=== PATIENT | male | born 1975 | race Caucasian/White ===

== ENCOUNTER 2019-09-04 10:33 | Outpatient (CLI) | payer MEDICARE, MEDICAID, SELFPAY ==
--- NOTE | 2019-09-04 10:43 | XR_ITS ---
WS: [id number] XR cervical spine 3V* [id number] REASON FOR EXAM: NECK PAIN FINDINGS: The odontoid process is normal. Degenerates spurring anteriorly C2, C3, C4, C5, C6. There is posterior spurring noted at C5-C6. The cervicothoracic junction was normal. The joints of Luschka at C4-5, C5-6 show hypertrophic changes. XR/XR cervical spine 3V* [id number] IMPRESSION: Osteoarthritic changes of the neck Mild cervical spondylosis C4-C5.
== END 2019-09-04 10:34 | disposition home or self-care (01) ==
LOC: RAD 10:39
PROVIDERS: PCP Family Medicine; Visit Provider Registered Nurse
DX: M47.892 Other spondylosis, cervical region (principal)
CPT/HCPCS: 72040

== ENCOUNTER 2019-12-26 02:02 | Emergency (ER) | payer MEDICARE, MEDICAID, SELFPAY ==
[2019-12-26 02:19] VITALS: BP 130/83; PULSE 107; RESP 18; TEMP 36.9; O2SAT 97; BMI 56.3
--- NOTE | 2019-12-26 02:26 | CTR_ITS ---
PROCEDURE INFORMATION: Exam: CT Head Without Contrast Exam date and time: 12/26/2019 2:43 AM Age: 44 years old Clinical indication: Dizziness TECHNIQUE: Imaging protocol: Computed tomography of the head without contrast. Radiation optimization: All CT scans at this facility use at least one of these dose optimization techniques: automated exposure control; mA and/or kV adjustment per patient size (includes targeted exams where dose is matched to clinical indication); or iterative reconstruction. COMPARISON: CT head wo con* [id number] 09/25/2018 6:36 AM RADIATION DOSE METRICS: Total DLP (mGy-cm): 977.01 FINDINGS: Brain: Normal. No hemorrhage. Unremarkable white matter. No mass effect. Cerebral ventricles: No ventriculomegaly. Bones/joints: Unremarkable. No acute fracture. Paranasal sinuses: Visualized sinuses are unremarkable. No fluid levels. Mastoid air cells: Visualized mastoid air cells are well aerated. Soft tissues: Unremarkable. CT/CT head wo con* [id number] IMPRESSION: No acute intracranial abnormality. Radiation Dose CTDIVOL = (mGy): DLP = 977.01 (mGy-cm)
--- NOTE | 2019-12-26 02:26 | XR_ITS ---
WS: [id number] XR chest 1V portable [id number] REASON FOR EXAM: Dyspnea FINDINGS: Mild cardiomegaly. Elevation and flattening of the right hemidiaphragm. There is some flattening of the left hemidiaphra gm as well. No active pulmonary parenchymal or pleural disease is identified. No bony thorax abnormality is identified. The chest is unchanged compared to 09/25/2018. XR/XR chest 1V portable [id number] IMPRESSION: No acute chest abnormality.
--- NOTE | 2019-12-26 02:27 | ECG_ITS ---
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 Measurements Intervals [place] Rate: 106 P: 40 MA: 168 QRS: 52 QRSD: 91 T: 9 QT: 323 QTc: 431 Interpretive Statements SINUS TACHYCARDIA ABNORMAL RHYTHM ECG INTERPRETATION BASED ON A DEFAULT AGE OF 40 YEARS Compared to ECG 09/25/2018 09:40:20 Sinus rhythm no longer present Sinus arrhythmia no longer present Electronically Signed On 12-26-2019 21:34:18 CDT by Govind Fontanez M.D. [id number]
[2019-12-26] MEDS: ondansetron 2 mg/ML SDV 2 mL 4 MG IVP (02:44)
[2019-12-26] MEDS: sodium chloride 0.9% 1,000 ML 999 ML IV ×2 (02:44→04:08)
[2019-12-26 02:45] VITALS: BP 124/79; PULSE 99; RESP 18; O2SAT 97
--- NOTE | 2019-12-26 02:46 | W.ED.ARRPALP ---
HPI - Arrhythmia/Palpitations General: Chief Complaint: Arrhythmia/Palpitations Stated Complaint: multiple complaints Time Seen by Provider: 12/26/19 02:22 Source: patient and family Limitations: no limitations History of Present Illness: HPI narrative: Mr. Serrano is a very nice 44-year-old male comes in complaining of feeling lightheaded and dizzy all day. He is had numerous episodes of vomiting and diarrhea. He has some left-sided cramping abdominal pain. Denies any blood in his stools or blood in his vomit. Tonight when he stood up he felt lightheaded and dizzy and felt like his heart was palpating. He did not pass out or nearly pass out. Patient was concerned he may be getting dehydrated because of this he came here to the hospital for evaluation. He denies any other aggravating alleviating factors. Denies any chest pain. He states he does have chronic lung issues and was short of breath with this but after using his inhaler he has felt much better. Associated symptoms: Reports nausea; Deny diaphoresis, pre-syncope, syncope or vomiting Review of Systems Const: Denies: fever(s), chills, body aches, fatigue, malaise or diaphoresis Eyes: Denies: change in vision, blurry vision, photophobia, eye discomfort, eye discharge, eye redness or yellow eyes ENMT: Denies: throat pain, odynophagia, hoarseness, swelling of lips/tongue, ear or mastoid pain, ear discharge, change in hearing or nasal discharge Card: Reports: palpitations; Denies: chest pain, irregular heart rhythm, edema, lightheadedness, syncope, pre-syncope, dyspnea on exertion or orthopnea Resp: Reports: dyspnea; Denies: productive cough, non-productive cough, wheezing, hemoptysis or chest congestion GI: Reports: abdominal pain, nausea and diarrhea; Denies: vomiting, hematemesis, coffee ground emesis, heartburn, constipation, GI cramping, hematochezia or melena : Denies: flank pain, dysuria, urinary frequency, urinary urgency or hematuria Musc: Denies: neck pain, back pain, extremity pain, extremity swelling, joint pain, joint swelling, joint redness, joint warmth or joint stiffness Skin/Breast: Denies: rash, pruritus, erythema, skin pain or skin tenderness Neuro: Denies: headache(s), numbness in extremities, weakness in extremities, sensory changes, lack of coordination, difficulty walking, vertigo, confusion, Slurred speech present or seizure-like activity Sundar/Lymph: Denies: easy bruising, easy bleeding, petechiae, purpura or enlarged lymph nodes All/Imm: Denies: urticaria, throat swelling, tongue swelling, facial swelling or acute wheezing Physical Exam Const: COMMON NORMALS: no acute distress, patient oriented x3, no limitations and alert GENERAL APPEARANCE: cooperative HENMT: COMMON NORMALS: normocephalic, atraumatic, external ears normal, EAC's normal and Normal external nose present HEAD & SCALP: normal to inspection, normocephalic and atraumatic FACE & SINUS: normal facial exam and face symmetric NOSE: Normal external nose present and Normal nares present EXTERNAL EAR: Yes external ears normal EXTERNAL AUDITORY CANAL: EAC's normal MOUTH: Normal oral and palatal mucosa present, lip normal and tongue normal Eye: COMMON NORMALS: Equal, round and reactive pupils present and conjunctivae normal GENERAL EYE: appearance normal, both eyes and all related structures ALIGNMENT: Yes alignment normal PERIORBITAL: periorbital findings normal EYELID: eyelids normal CONJUNCTIVA: Yes conjunctivae normal SCLERA: sclerae normal PUPIL: Yes Equal, round and reactive pupils present Neck/C-Spine: COMMON NORMALS: full ROM, no lymphadenopathy, supple, no meningeal signs and no JVD GENERAL: Yes normal visual inspection and Yes trachea midline Chest: COMMONS NORMALS: normal inspection of the chest and normal palpation of entire chest wall Resp: COMMON NORMALS: normal respiratory effort, No retractions, No use of accessory muscles and clear to auscultation bilaterally EFFORT & INSPECTION: Yes able to speak in complete sentences and Yes symmetric chest movement AUSCULTATION: clear to auscultation bilaterally, no crackles, no rales, no rhonchi and no wheezes Cardio: COMMON NORMALS: no JVD, regular rate, regular rhythm, S1 normal heart sound present and S2 normal heart sound present RATE: regular rate RHYTHM: regular rhythm HEART SOUNDS: S1 normal heart sound present, S2 normal heart sound present, no click, no gallops, no murmurs and no rubs GI: COMMON NORMALS: Soft to palpation and No hepatosplenomegaly present PALPATION: Yes Soft to palpation, No Tenderness to palpation present (GI), No Guarding due to palpation present (GI), No Rigid due to palpation, Yes No hepatosplenomegaly present, No Hernia present, No Palpable mass present and No Pulsatile mass present : COMMON NORMALS: Yes no CVA tenderness BLADDER/KIDNEY EXAM: Yes no CVA tenderness Back/Pelvis: COMMON NORMALS: no CVA tenderness, thoracic and lumbar spine normal to inspection, no thoracic nor lumbar tenderness and thoraco-lumbar ROM normal Extremity: COMMON NORMALS: normal to inspection, full ROM, capillary refill normal, no joint enlargement, no clubbing, cyanosis or edema and no calf tenderness Neuro: COMMON NORMALS: patient oriented x3, CN's II-XII intact bilaterally, moves all extremities, no focal motor deficits and no sensory deficits noted SENSORIUM/ORIENTATION: Yes alert MENINGEAL SIGNS: Yes no meningeal signs SPEECH: speech normal Psych: COMMON NORMALS: mental status grossly normal, Normal thought process present, cooperative, normal affect, speech normal and activity/motor behavior normal SPEECH: Yes normal speech THOUGHT PROCESS: Normal thought process present Skin: COMMON NORMALS: no rashes or lesions noted, turgor normal, no jaundice, no petechiae and no mottling GENERAL SKIN EXAM: no rashes or lesions noted and turgor normal Course Vital Signs: Vital signs: Vital Signs Temperature 98.4 F 12/26/19 02:19 Pulse Rate 97 12/26/19 06:07 Respiratory Rate 16 12/26/19 06:07 Blood Pressure 125/84 12/26/19 06:07 Pulse Oximetry 97 12/26/19 06:07 MDM - Arrhythmia/Palpitations MDM Narrative: Medical decision making narrative: 0546 -patient is feeling much better and is ready to go home. His labs are unremarkable as well as his CAT scans. He agrees to return should his symptoms change or worsen but this time he is feeling better would like to be discharged. On repeat exam I see no evidence of acute peritonitis. Patient is having no chest pain. His labs and EKGs are unremarkable. Patient's urine came back corrected and there is evidence of UTI. I will place the patient on antibiotics at discharge. Lab Data: Attestation: I reviewed the patient's lab results. Labs: Lab Results 12/26/19 12/26/19 12/26/19 Range/Units 02:38 02:38 02:38 WBC 9.7 (4.0-10.0) 10^3/ uL RBC 4.48 (4.1-5.3) 10^6/u L Hgb 12.8 (11.7-16.6) g/dL Hct 39.8 L (42.0-52.0) % MCV 88.8 (80-94) fL MCH 28.6 (28.0-34.0) pg MCHC 32.2 (30.0-36.0) g/dL RDW 12.8 (12.1-15.1) % Plt Count 259 (130-400) 10^3/c mm MPV 10.4 (7.4-10.4) fL Neut % (Auto) 69.7 % Lymph % (Auto) 19.4 % Bates % (Auto) 7.8 % Eos % (Auto) 2.1 % Baso % (Auto) 0.7 % Neut # (Auto) 6.74 (1.8-7.7) 10^3/u L Lymph # (Auto) 1.9 (0.8-4.8) 10^3/u L Bates # (Auto) 0.8 (0.2-0.9) 10^3/u L Eos # (Auto) 0.2 (0.0-0.8) 10^3/u L Baso # (Auto) 0.1 (0.0-0.1) 10^3/u L Nucleated RBC % (a uto) 0 % Nucleated RBCs # 0.0 /100WBC D-Dimer (0-0.59) ug/mIFE U Sodium 136 (136-145) mmol/L Potassium 3.6 (3.5-5.1) mmol/L Chloride 100 (98-107) mmol/L Carbon Dioxide 22 (22-29) mmol/L Anion Gap 17.6 (5-19) BUN 16 (6-20) mg/dL Creatinine 1.2 (0.7-1.2) mg/dL GFR Calculation 65.2 L (90-130) mL/min Glucose 251 H (65-115) mg/dL Calculated Osmolal ity 292 (285-295) mOsm/k g Lactic Acid 1.5 (0.5-2.2) mmol/L Calcium 9.5 (8.5-10.5) mg/dL Magnesium 2.0 (1.7-2.3) mg/dL Total Bilirubin 0.3 (0.15-1.2) mg/dL AST 23 (0-40) U/L ALT 29 (0-41) U/L Alkaline Phosphata se 89 (40-130) IU/L Troponin T Baselin e (0-15) ng/L Troponin T 120 Min [place] (0-15) ng/L Delta Troponin T (0-10) ABS# NT-Pro-B Natriuret Pep (0-125) pg/mL Total Protein 6.6 (6.6-8.7) g/dL Albumin 4.0 (3.5-5.2) g/dL Globulin 2.6 (1.3-4.6) g/dL Lipase 48 (13-60) U/L Urine Color (Yellow) Urine Appearance (CLEAR) Urine pH (5-7) Ur Specific Gravit y (1.005-1.030) Urine Protein (Negative) Urine Glucose (UA) (Normal) Urine Ketones (Negative) Urine Blood (Negative) Urine Nitrate (Negative) Urine Bilirubin (Negative) Urine Urobilinogen (Negative) mg/dL Ur Leukocyte Nidia ase (Negative) Urine RBC (0-2) /hpf Urine WBC (0-5) /hpf Ur Squamous Epith Cells (0-5) /hpf Amorphous Sediment Urine Bacteria (NONE) /hpf SARS-CoV-2 Ag (Rap id) (Negative) 12/26/19 12/26/19 12/26/19 Range/Units 02:38 02:38 02:38 WBC (4.0-10.0) 10^3/ uL RBC (4.1-5.3) 10^6/u L Hgb (11.7-16.6) g/dL Hct (42.0-52.0) % MCV (80-94) fL MCH (28.0-34.0) pg MCHC (30.0-36.0) g/dL RDW (12.1-15.1) % Plt Count (130-400) 10^3/c mm MPV (7.4-10.4) fL Neut % (Auto) % Lymph % (Auto) % Bates % (Auto) % Eos % (Auto) % Baso % (Auto) % Neut # (Auto) (1.8-7.7) 10^3/u L Lymph # (Auto) (0.8-4.8) 10^3/u L Bates # (Auto) (0.2-0.9) 10^3/u L Eos # (Auto) (0.0-0.8) 10^3/u L Baso # (Auto) (0.0-0.1) 10^3/u L Nucleated RBC % (a uto) % Nucleated RBCs # /100WBC D-Dimer (0-0.59) ug/mIFE U Sodium (136-145) mmol/L Potassium (3.5-5.1) mmol/L Chloride (98-107) mmol/L Carbon Dioxide (22-29) mmol/L Anion Gap (5-19) BUN (6-20) mg/dL Creatinine (0.7-1.2) mg/dL GFR Calculation (90-130) mL/min Glucose (65-115) mg/dL Calculated Osmolal ity (285-295) mOsm/k g Lactic Acid (0.5-2.2) mmol/L Calcium (8.5-10.5) mg/dL Magnesium (1.7-2.3) mg/dL Total Bilirubin (0.15-1.2) mg/dL AST (0-40) U/L ALT (0-41) U/L Alkaline Phosphata se (40-130) IU/L Troponin T Baselin e 11 (0-15) ng/L Troponin T 120 Min [place] (0-15) ng/L Delta Troponin T (0-10) ABS# NT-Pro-B Natriuret Pep 5 (0-125) pg/mL Total Protein (6.6-8.7) g/dL Albumin (3.5-5.2) g/dL Globulin (1.3-4.6) g/dL Lipase (13-60) U/L Urine Color (Yellow) Urine Appearance (CLEAR) Urine pH (5-7) Ur Specific Gravit y (1.005-1.030) Urine Protein (Negative) Urine Glucose (UA) (Normal) Urine Ketones (Negative) Urine Blood (Negative) Urine Nitrate (Negative) Urine Bilirubin (Negative) Urine Urobilinogen (Negative) mg/dL Ur Leukocyte Nidia ase (Negative) Urine RBC (0-2) /hpf Urine WBC (0-5) /hpf Ur Squamous Epith Cells (0-5) /hpf Amorphous Sediment Urine Bacteria (NONE) /hpf SARS-CoV-2 Ag (Rap id) Negative (Negative) 12/26/19 12/26/19 12/26/19 Range/Units 02:38 04:25 04:25 WBC (4.0-10.0) 10^3/ uL RBC (4.1-5.3) 10^6/u L Hgb (11.7-16.6) g/dL Hct (42.0-52.0) % MCV (80-94) fL MCH (28.0-34.0) pg MCHC (30.0-36.0) g/dL RDW (12.1-15.1) % Plt Count (130-400) 10^3/c mm MPV (7.4-10.4) fL Neut % (Auto) % Lymph % (Auto) % Bates % (Auto) % Eos % (Auto) % Baso % (Auto) % Neut # (Auto) (1.8-7.7) 10^3/u L Lymph # (Auto) (0.8-4.8) 10^3/u L Bates # (Auto) (0.2-0.9) 10^3/u L Eos # (Auto) (0.0-0.8) 10^3/u L Baso # (Auto) (0.0-0.1) 10^3/u L Nucleated RBC % (a uto) % Nucleated RBCs # /100WBC D-Dimer 0.44 (0-0.59) ug/mIFE U Sodium (136-145) mmol/L Potassium (3.5-5.1) mmol/L Chloride (98-107) mmol/L Carbon Dioxide (22-29) mmol/L Anion Gap (5-19) BUN (6-20) mg/dL Creatinine (0.7-1.2) mg/dL GFR Calculation (90-130) mL/min Glucose (65-115) mg/dL Calculated Osmolal ity (285-295) mOsm/k g Lactic Acid (0.5-2.2) mmol/L Calcium (8.5-10.5) mg/dL Magnesium (1.7-2.3) mg/dL Total Bilirubin (0.15-1.2) mg/dL AST (0-40) U/L ALT (0-41) U/L Alkaline Phosphata se (40-130) IU/L Troponin T Baselin e (0-15) ng/L Troponin T 120 [address] [place] 10.47 (0-15) ng/L Delta Troponin T -0.53 L (0-10) ABS# NT-Pro-B Natriuret Pep (0-125) pg/mL Total Protein (6.6-8.7) g/dL Albumin (3.5-5.2) g/dL Globulin (1.3-4.6) g/dL Lipase (13-60) U/L Urine Color Yellow (Yellow) Urine Appearance Clear (CLEAR) Urine pH 5 (5-7) Ur Specific Gravit y 1.020 (1.005-1.030) Urine Protein Neg (Negative) Urine Glucose (UA) 4+ H (Normal) Urine Ketones Negative (Negative) Urine Blood Neg (Negative) Urine Nitrate Negative (Negative) Urine Bilirubin Neg (Negative) Urine Urobilinogen Norm (Negative) mg/dL Ur Leukocyte Nidia ase 1+ H (Negative) Urine RBC 0-4 H (0-2) /hpf Urine WBC 15-25 H (0-5) /hpf Ur Squamous Epith Cells 0-4 H (0-5) /hpf Amorphous Sediment Not Reportable Urine Bacteria 1+ H (NONE) /hpf SARS-CoV-2 Ag (Rap id) (Negative) Imaging Data^: CXR: Attestation: I personally reviewed and interpreted this imaging study as follows: My impression: Mild rotation present. Cardiomegaly. Possible mild interstitial prominence. CT Abd/Pel: Radiologist's impression: [address] [address] [address] Scan Report Signed Patient: Josse Serrano Unit #: [id number] : 1975 Age/Sex: 44 / M ADM Date: 12/26/19 Loc: ER Room/Bed: Attending Dr: Ordering Provider/Ordering MD: Alem Merrill DO Date of Service: 12/26/19 Procedure(s): CT abdomen pelvis w con* [id number] Accession Number(s): [id number] Report Number: [id number] PROCEDURE INFORMATION: Exam: CT Abdomen And Pelvis With Contrast Exam date and time: 12/26/2019 4:21 AM Age: 44 years old Clinical indication: Abdominal pain; Generalized TECHNIQUE: Imaging protocol: Computed tomography of the abdomen and pelvis with intravenous contrast. Radiation optimization: All CT scans at this facility use at least one of these dose optimization techniques: automated exposure control; mA and/or kV adjustment per patient size (includes targeted exams where dose is matched to clinical indication); or iterative reconstruction. Contrast material: OMNI 300; Contrast volume: 95 ml; Contrast route: INTRAVENOUS (IV); COMPARISON: No relevant prior studies available. RADIATION DOSE METRICS: Total DLP (mGy-cm): 2051.43 FINDINGS: Lungs: Lung bases are clear. Liver: The liver is normal. Gallbladder and bile ducts: Cholelithiasis is present. There is no sign of cholecystitis. There is no intrahepatic or extrahepatic bile duct dilation. Pancreas: The pancreas is unremarkable. Spleen: The spleen is unremarkable. Adrenals: The adrenal glands are unremarkable. Kidneys and ureters: The kidneys are unremarkable. No hydronephrosis or stones. No ureteral dilation. Stomach and bowel: The stomach is unremarkable. The small bowel is nondilated. The colon is unremarkable. Appendix: The appendix is normal. Intraperitoneal space: There is no free air or significant intraperitoneal free fluid. Vasculature: The portal, splenic and superior mesenteric veins are patent. The aorta is unremarkable. There is no aneurysm. Lymph nodes: There is no lymphadenopathy in the retroperitoneum, mesentery, pelvis or inguinal regions. There are calcified lymph nodes in the right hilum. Urinary bladder: The urinary bladder is unremarkable. Reproductive: The prostate and seminal vesicles are unremarkable. Bones/joints: There is mild degenerative disease in the lumbar spine. There is moderate degenerative disease of both hips. The pelvis and hips are intact. Soft tissues: The visible portion of the abdominal wall is intact. The left lateral abdominal wall is partially obscured due to bore contact. CT/CT abdomen pelvis w con* [id number] IMPRESSION: 1. No acute findings. 2. Incidental findings above. Radiation Dose CTDIVOL = (mGy): DLP = 2051.43 (mGy-cm) Dictated By: Phi Faulkner MD Signed By: Phi Faulkner MD Signed Date/Time: 12/26/19515 DD/ 4 CT Head: Radiologist's impression: [facility] [address] [place] [address] CT Scan Report Signed Patient: Josse Serrano Unit #: [id number] : 1975 Age/Sex: 44 / M ADM Date: 12/26/19 Loc: ER Room/Bed: Attending Dr: Ordering Provider/Ordering MD: Alem Merrill DO Date of Service: 12/26/19 Procedure(s): CT head wo con* [id number] Accession Number(s): [id number] Report Number: [id number] PROCEDURE INFORMATION: Exam: CT Head Without Contrast Exam date and time: 12/26/2019 2:43 AM Age: 44 years old Clinical indication: Dizziness TECHNIQUE: Imaging protocol: Computed tomography of the head without contrast. Radiation optimization: All CT scans at this facility use at least one of these dose optimization techniques: automated exposure control; mA and/or kV adjustment per patient size (includes targeted exams where dose is matched to clinical indication); or iterative reconstruction. COMPARISON: CT head wo con* [id number] 09/25/2018 6:36 AM RADIATION DOSE METRICS: Total DLP (mGy-cm): 977.01 FINDINGS: Brain: Normal. No hemorrhage. Unremarkable white matter. No mass effect. Cerebral ventricles: No ventriculomegaly. Bones/joints: Unremarkable. No acute fracture. Paranasal sinuses: Visualized sinuses are unremarkable. No fluid levels. Mastoid air cells: Visualized mastoid air cells are well aerated. Soft tissues: Unremarkable. CT/CT head wo con* [id number] IMPRESSION: No acute intracranial abnormality. Radiation Dose CTDIVOL = (mGy): DLP = 977.01 (mGy-cm) Dictated By: Maureen Serna Signed By: Maureen Serna Signed Date/Time: 12/26/19528 DD/ 6 EKG Data^: EKG 1: Attestation: I personally reviewed and interpreted this EKG as follows: EKG interpretation date: 12/26/19 EKG interpretation time: 02:21 Interpretation: Sinus tachycardia at 106 beats a minute, normal axis, normal intervals, no blocks, no acute ST-T wave changes. Other EKG comments: Chest X-Ray 12/26/19 02:26 IMPRESSION: No acute chest abnormality. Head CT 12/26/19 02:26 IMPRESSION: No acute intracranial abnormality. Radiation Dose CTDIVOL = (mGy): DLP = 977.01 (mGy-cm) Abdomen/Pelvis CT 12/26/19 04:19 IMPRESSION: 1. No acute findings. 2. Incidental findings above. Radiation Dose CTDIVOL = (mGy): DLP = 2051.43 (mGy-cm) EKG 2: Attestation: I personally reviewed and interpreted this EKG as follows: EKG interpretation date: 12/26/19 EKG interpretation time: 04:56 Interpretation: Normal sinus rhythm at 92 beats a minute, no blocks, normal intervals, no acute ST-T wave changes. Other EKG comments: Chest X-Ray 12/26/19 02:26 IMPRESSION: No acute chest abnormality. Head CT 12/26/19 02:26 IMPRESSION: No acute intracranial abnormality. Radiation Dose CTDIVOL = (mGy): DLP = 977.01 (mGy-cm) Abdomen/Pelvis CT 12/26/19 04:19 IMPRESSION: 1. No acute findings. 2. Incidental findings above. Radiation Dose CTDIVOL = (mGy): DLP = 2051.43 (mGy-cm) Discharge Plan Discharge Patient Disposition: Home Clinical Impression: Abdominal pain, vomiting, and diarrhea, Palpitations, Acute dehydration, Acute UTI Condition: Stable Prescriptions: New Zofran 4 mg tablet 4 mg PO Q6H PRN (Reason: nausea and vomiting) Qty: 20 RF: 0 cefdinir 300 mg capsule 300 mg PO Q12H 10 Days Qty: 20 RF: 0 Discharge Orders: Discharge Order (Routine); Ordered 12/26/19 Ordered By: Alem Merrill Referrals: Rachel Cortez DO [Primary Care Provider] - 1-3 days Discharge Diet: Advance as tolerated and Clear Liquid Discharge Activity: Increase activity as tolerated Patient Instructions: Abdominal Pain (ED) Activity Restrictions/Additional Instructions: Please return to the ER immediately for any of the signs or symptoms listed on your discharge instruction sheets, worsening/changing of your symptoms, you are not getting better as quickly as expected, or for ANY other cause or concerns. Return to the ER for new onset of chest pain, return of shortness of breath, new onset of fever, worsening vomiting and diarrhea, or for any other cause for concern. Be certain to follow-up with your doctor as soon as possible for recheck. 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
[2019-12-26 02:50] LABS: Basophils # 0.1 10^3/uL (0.0-0.1); Basophils % 0.7 %; Eosinophils # 0.2 10^3/uL (0.0-0.8); Eosinophils % 2.1 %; Hematocrit 39.8 % (42.0-52.0); Hemoglobin 12.8 g/dL (11.7-16.6); Lymphocytes # 1.9 10^3/uL (0.8-4.8); Lymphocytes % 19.4 %; Mean Corpuscular HGB Conc 32.2 g/dL (30.0-36.0); Mean Corpuscular Hemoglobin 28.6 pg (28.0-34.0); Mean Corpuscular Volume 88.8 fL (80-94); Mean Platelet Volume 10.4 fL (7.4-10.4); Monocytes # 0.8 10^3/uL (0.2-0.9); Monocytes % 7.8 %; Neutrophils # 6.74 10^3/uL (1.8-7.7); Neutrophils % 69.7 %; Nucleated Red Blood Cells % 0 %; Platelet Count 259 10^3/cmm (130-400); Red Blood Count 4.48 10^6/uL (4.1-5.3); Red Cell Distribution Width 12.8 % (12.1-15.1); White Blood Count 9.7 10^3/uL (4.0-10.0)
[2019-12-26 03:10] LABS: Lactic Sepsis W/Reflex 1.5 mmol/L (0.5-2.2)
[2019-12-26 03:11] LABS: Alanine Aminotransferase 29 U/L (0-41); Alkaline Phosphatase 89 IU/L (40-130); Anion Gap 17.6 (5-19); Aspartate Amino Transferase 23 U/L (0-40); Blood Urea Nitrogen 16 mg/dL (6-20); Calcium 9.5 mg/dL (8.5-10.5); Carbon Dioxide 22 mmol/L (22-29); Chloride 100 mmol/L (98-107); Creatinine Clr Calc Pharmacy 114.2113; Globulin 2.6 g/dL (1.3-4.6); Glomerular Filtration Rate 65.2 mL/min (90-130); Glucose 251 mg/dL (65-115); Lipase 48 U/L (13-60); Osmolality Calculated 292 mOsm/kg (285-295); Potassium 3.6 mmol/L (3.5-5.1); Sodium 136 mmol/L (136-145); Total Bilirubin 0.3 mg/dL (0.15-1.2); Total Protein 6.6 g/dL (6.6-8.7)
[2019-12-26 03:15] LABS: Troponin(5th) Baseline 11 ng/L (0-15)
[2019-12-26 03:48] LABS: SARS Covid-2 Antigen Negative (Negative)
[2019-12-26 04:18] LABS: D Dimer 0.44 ug/mIFEU (0-0.59)
--- NOTE | 2019-12-26 04:19 | CTR_ITS ---
PROCEDURE INFORMATION: Exam: CT Abdomen And Pelvis With Contrast Exam date and time: 12/26/2019 4:21 AM Age: 44 years old Clinical indication: Abdominal pain; Generalized TECHNIQUE: Imaging protocol: Computed tomography of the abdomen and pelvis with intravenous contrast. Radiation optimization: All CT scans at this facility use at least one of these dose optimization techniques: automated exposure control; mA and/or kV adjustment per patient size (includes targeted exams where dose is matched to clinical indication); or iterative reconstruction. Contrast material: OMNI 300; Contrast volume: 95 ml; Contrast route: INTRAVENOUS (IV); COMPARISON: No relevant prior studies available. RADIATION DOSE METRICS: Total DLP (mGy-cm): 2051.43 FINDINGS: Lungs: Lung bases are clear. Liver: The liver is normal. Gallbladder and bile ducts: Cholelithiasis is present. There is no sign of cholecystitis. There is no intrahepatic or extrahepatic bile duct dilation. Pancreas: The pancreas is unremarkable. Spleen: The spleen is unremarkable. Adrenals: The adrenal glands are unremarkable. Kidneys and ureters: The kidneys are unremarkable. No hydronephrosis or stones. No ureteral dilation. Stomach and bowel: The stomach is unremarkable. The small bowel is nondilated. The colon is unremarkable. Appendix: The appendix is normal. Intraperitoneal space: There is no free air or significant intraperitoneal free fluid. Vasculature: The portal, splenic and superior mesenteric veins are patent. The aorta is unremarkable. There is no aneurysm. Lymph nodes: There is no lymphadenopathy in the retroperitoneum, mesentery, pelvis or inguinal regions. There are calcified lymph nodes in the right hilum. Urinary bladder: The urinary bladder is unremarkable. Reproductive: The prostate and seminal vesicles are unremarkable. Bones/joints: There is mild degenerative disease in the lumbar spine. There is moderate degenerative disease of both hips. The pelvis and hips are intact. Soft tissues: The visible portion of the abdominal wall is intact. The left lateral abdominal wall is partially obscured due to bore contact. CT/CT abdomen pelvis w con* [id number] IMPRESSION: 1. No acute findings. 2. Incidental findings above. Radiation Dose CTDIVOL = (mGy): DLP = 2051.43 (mGy-cm)
[2019-12-26 04:20] LABS: NT Pro B Type Natriuretic Pept 5 pg/mL (0-125)
[2019-12-26] MEDS: iohexol 300 mg/mL 100 mL Btl IV (04:46)
[2019-12-26 05:08] LABS: Troponin 5 2HR 10.47 ng/L (0-15); Troponin 5 2HR Delta -0.53 ABS# (0-10)
[2019-12-26 05:45] LABS: Urine Appearance Clear (CLEAR); Urine Color Yellow (Yellow)
[2019-12-26 05:46] LABS: Bacteria Urine 1+ /hpf; Bilirubin Urine Neg (Negative); Blood Urine Neg (Negative); Glucose Urine UA 4+ (Normal); Ketones Urine Negative (Negative); Leukocyte Esterase Urine 1+ (Negative); Nitrate Urine Negative (Negative); Protein Urine Neg (Negative); RBC Urine 0-4 /hpf (0-2); Squamous Epithelial Cell Urine 0-4 /hpf (0-5); Urobilinogen Urine Norm (Negative); WBC Urine 15-25 /hpf (0-5); pH Urine 5 (5-7)
[2019-12-26 06:07] VITALS: BP 125/84; PULSE 97; RESP 16; O2SAT 97
[2019-12-26] MEDS: cefTRIAXone 1,000 MG in sodium chloride 0.9% (plus) 50 ML 100 MG IV (06:07)
== END 2019-12-26 06:09 | disposition home or self-care (01) ==
PROVIDERS: Emergency Provider Emergency Medicine; PCP Family Medicine
DX: N39.0 Urinary tract infection, site not specified (principal); E86.0 Dehydration; R00.2 Palpitations; R19.7 Diarrhea, unspecified; R11.10 Vomiting, unspecified
CPT/HCPCS: 12345; 70450; 71045; 74177; 80053; 81001; 83605; 83690; 83735; 83880; 84484; 85025; 85378; 87426; 93005; 96361; 96374; 96375; 99283; 99284; J0696; J2405; J7030; Q9967

== ENCOUNTER → 2023-08-18 09:39 | Outpatient (BNVA) | payer MEDICARE, MEDICAID, SELFPAY | PROVIDERS: PCP Family Medicine; Visit Provider Student in an Organized Health Care Education/Training Program | DX: S46.002A Unspecified injury of muscle(s) and tendon(s) of the rotator cuff of left shoulder, initial encounter; W18.2XXA Fall in (into) shower or empty bathtub, initial encounter | CPT/HCPCS: 73030; 99203 ==

== ENCOUNTER 2024-06-18 12:33 | Emergency (ER) | payer MEDICARE, MEDICAID, SELFPAY ==
--- NOTE | 2024-06-18 12:35 | XR_ITS ---
WS: [id number] XR chest 1V portable [id number] REASON FOR EXAM: sob FINDINGS: The chest appears relatively unchanged compared to 12/26/2019. Mild tortuosity and ectasia of the thoracic aorta. Heart size at the upper limits of normal. Calcified granulomas disease bilaterally. Elevation of the right hemidiaphragm. Hemidiaphragms are somewhat flattened. No significant abnormality of the bony thorax is identified. XR/XR chest 1V portable [id number] IMPRESSION: Stable chest with no acute abnormality.
[2024-06-18 12:36] VITALS: BP 153/89; PULSE 91; RESP 18; TEMP 36.8; O2SAT 97; BMI 56.3
--- NOTE | 2024-06-18 12:41 | ECG_ITS ---
[facility]: 2024-[facility]18 Pat Name: Josse Serrano Department: Room: Gender: Male Home Health Provider: : 1975 Requested By: Christianne Hinds Order Number: [id number] Reading MD: Measurements Intervals [place] Rate: 87 P: 27 RI: 156 QRS: 24 QRSD: 88 T: 29 QT: 326 QTc: 393 Interpretive Statements SINUS RHYTHM LOW QRS VOLTAGE IN PRECORDIAL LEADS [QRS DEFLECTION < 1.0 mV IN CHEST LEADS] INTERPRETATION BASED ON A DEFAULT AGE OF 40 YEARS No previous ECG available for comparison [email or web address]
[2024-06-18 12:56] LABS: Basophils # 0.1 10^3/uL (0.0-0.1); Basophils % 0.8 %; Eosinophils # 0.2 10^3/uL (0.0-0.8); Eosinophils % 1.7 %; Hematocrit 43.8 % (37-53); Lymphocytes # 1.6 10^3/uL (0.8-4.8); Mean Corpuscular HGB Conc 32.2 g/dL (30-55); Mean Corpuscular Hemoglobin 28.5 pg (27-33); Mean Corpuscular Volume 88.5 fl (82-101); Mean Platelet Volume 10.1 fL (7.4-10.4); Monocytes # 0.7 10^3/uL (0.2-0.9); Monocytes % 7.1 %; Neutrophils # 7.48 10^3/uL (1.8-7.7); Neutrophils % 73.4 %; Nucleated Red Blood Cells % 0 %; Platelet Count 287 10^3/cmm (157-399); Red Blood Count 4.95 10^6/uL (3.85-5.65); Red Cell Distribution Width 13.2 % (12.1-15.1); White Blood Count 10.18 10^3/uL (3.29-11.43)
--- NOTE | 2024-06-18 13:10 | W.ED.SOB ---
HPI - SOB/Dyspnea General: Chief Complaint: Shortness of Breath/Dyspnea Stated Complaint: SOB Time Seen by Provider: 06/18/24 13:04 Source: patient Mode of arrival: ambulatory Limitations: no limitations History of Present Illness: HPI Narrative: 49-year-old male states that he has been having shortness of breath little weak states he was seen last week at another ER was diagnosed pneumonia is finished his doxycycline he states is not any shortness of breath any days states it is only at night states he wears a CPAP machine but seems that he gets short of breath with laying down and when he is sleeping he denies any chest pain denies any fever cough. Associated symptoms: Deny abdominal pain, chest pain, fever(s), nausea or vomiting Related Data Home Medications ?Medication ?Instructions ?Recorded ?Confirmed albuterol sulfate 90 mcg/actuation 2 inh inhalation Q6H 06/18/24 06/18/24 aerosol inhaler bumetanide 1 mg tablet 1 mg PO DAILY 06/18/24 06/18/24 dulaglutide 0.75 mg/0.5 mL 0.75 mg SUBCUT Q7D 06/18/24 06/18/24 subcutaneous pen injector (Trulicity) empagliflozin 25 mg-linagliptin 5 1 tab PO DAILY 06/18/24 06/18/24 mg-metformin ER 1,000 mg tablet,24hr (Trijardy XR) fenofibrate 160 mg tablet 160 mg PO DAILY 06/18/24 06/18/24 fluticasone fur. 200 mcg-umeclid 1 ea inhalation DAILY 06/18/24 06/18/24 62.5 mcg-vilant 25 mcg inhalat.powder (Trelegy Ellipta) fluticasone propionate 50 2 spray intranasal BID 06/18/24 06/18/24 mcg/actuation nasal spray,suspension hydrocodone 10 mg-acetaminophen 1 tab PO QID PRN Pain 06/18/24 06/18/24 325 mg tablet ibuprofen 800 mg tablet 800 mg PO TID 06/18/24 06/18/24 insulin degludec 100 unit/mL (3 80 unit SUBCUT BID 06/18/24 06/18/24 mL) subcutaneous pen (Tresiba FlexTouch U-100 insulin) insulin lispro 100 unit/mL 40 unit SUBCUT TID 06/18/24 06/18/24 subcutaneous pen lisinopril 40 mg tablet 40 mg PO DAILY 06/18/24 06/18/24 omeprazole 20 mg capsule,delayed 20 mg PO DAILY 06/18/24 06/18/24 release potassium chloride 20 mEq 20 meq PO DAILY 06/18/24 06/18/24 tablet,extended release tizanidine 4 mg tablet 4 mg PO TID 06/18/24 06/18/24 Allergies Allergy/AdvReac Type Severity Reaction Status Date / Time adhesive Allergy Intermediate ALGY-Rash Verified 08/18/23 09:54 diclofenac (From Voltaren) Allergy Intermediate ALGY-Rash Verified 08/18/23 09:54 tiotropium (From Spiriva Allergy Intermediate ALGY-Difficulty Verified 08/18/23 09:54 with HandiHaler) Breathing Review of Systems Const: Denies: fever(s), chills, body aches or change in appetite ENMT: Denies: throat pain or dental pain Card: Denies: chest pain Resp: Reports: dyspnea GI: Denies: abdominal pain, nausea, vomiting or diarrhea Musc: Denies: neck pain or back pain Skin/Breast: Denies: rash Neuro: Denies: headache(s) Physical Exam Const: COMMON NORMALS: no acute distress, patient oriented x3 and healthy appearing HENMT: COMMON NORMALS: normocephalic and atraumatic HEAD & SCALP: normocephalic and atraumatic Eye: COMMON NORMALS: conjunctivae normal CONJUNCTIVA: Yes conjunctivae normal Neck/C-Spine: COMMON NORMALS: full ROM and supple Chest: COMMONS NORMALS: normal inspection of the chest Resp: COMMON NORMALS: normal respiratory effort, No retractions, No use of accessory muscles and clear to auscultation bilaterally AUSCULTATION: clear to auscultation bilaterally Cardio: COMMON NORMALS: regular rate, regular rhythm and No murmurs present (Cardio) RATE: regular rate RHYTHM: regular rhythm Extremity: COMMON NORMALS: normal to inspection and full ROM Neuro: COMMON NORMALS: patient oriented x3, moves all extremities and no focal motor deficits Psych: COMMON NORMALS: mental status grossly normal, Normal thought process present and cooperative THOUGHT PROCESS: Normal thought process present Skin: COMMON NORMALS: no rashes or lesions noted and no wounds GENERAL SKIN EXAM: no rashes or lesions noted Course Vital Signs: Vital signs: Vital Signs Temperature 98.2 F 06/18/24 12:36 Pulse Rate 91 06/18/24 12:36 Respiratory Rate 18 06/18/24 12:36 Blood Pressure 153/89 06/18/24 12:36 Pulse Oximetry 97 06/18/24 12:36 Oxygen Delivery Me thod Room Air 06/18/24 12:36 MDM - SOB/Dyspnea Medical Decision Making Patient presents for shortness of breath he has been well-appearing here x-ray blood works normal exam no chest pain his oxygen's been normal he is no signs of pulmonary embolism he is stable for discharge he is follow-up with PCP return if worsening. Medical Records I reviewed the patient's medical records. Lab Data I reviewed the patient's lab results. 06/18/24 12:51 06/18/24 12:51 Labs/Radiology: Radiology Impressions Chest X-Ray 06/18/24 12:35 IMPRESSION: Stable chest with no acute abnormality. Laboratory Results WBC 10.18 10^3/uL (3.29-11.43) 06/18/24 12:51 RBC 4.95 10^6/uL (3.85-5.65) 06/18/24 12:51 Hgb 14.10 g/dL (11.27-16.99) 06/18/24 12:51 Hct 43.8 % (37-53) 06/18/24 12:51 MCV 88.5 fl (82-101) 06/18/24 12:51 MCH 28.5 pg (27-33) 06/18/24 12:51 MCHC 32.2 g/dL (30-55) 06/18/24 12:51 RDW 13.2 % (12.1-15.1) 06/18/24 12:51 Plt Count 287 10^3/cmm (157-399) 06/18/24 12:51 MPV 10.1 fL (7.4-10.4) 06/18/24 12:51 Neut % (Auto) 73.4 % 06/18/24 12:51 Lymph % (Auto) 16.0 % 06/18/24 12:51 [place] % (Auto) 7.1 % 06/18/24 12:51 Eos % (Auto) 1.7 % 06/18/24 12:51 Baso % (Auto) 0.8 % 06/18/24 12:51 Neut # (Auto) 7.48 10^3/uL (1.8-7.7) 06/18/24 12:51 Lymph # (Auto) 1.6 10^3/uL (0.8-4.8) 06/18/24 12:51 [place] # (Auto) 0.7 10^3/uL (0.2-0.9) 06/18/24 12:51 Eos # (Auto) 0.2 10^3/uL (0.0-0.8) 06/18/24 12:51 Baso # (Auto) 0.1 10^3/uL (0.0-0.1) 06/18/24 12:51 Nucleated RBC % (auto) 0 % 06/18/24 12:51 Nucleated RBCs # 0.0 /100WBC 06/18/24 12:51 Sodium 139 mmol/L (136-145) 06/18/24 12:51 Potassium 3.8 mmol/L (3.5-5.1) 06/18/24 12:51 Chloride 101 mmol/L (98-107) 06/18/24 12:51 Carbon Dioxide 25 mmol/L (22-29) 06/18/24 12:51 Anion Gap 16.8 (5-19) 06/18/24 12:51 BUN 15 mg/dL (6-20) 06/18/24 12:51 Creatinine 1.0 mg/dL (0.7-1.2) 06/18/24 12:51 GFR Calculation 78.8 mL/min (90-130) L 06/18/24 12:51 Glucose 114 mg/dL (65-115) 06/18/24 12:51 Calculated Osmolality 290 mOsm/kg (285-295) 06/18/24 12:51 Calcium 9.9 mg/dL (8.5-10.5) 06/18/24 12:51 Total Bilirubin 0.7 mg/dL (0.15-1.2) 06/18/24 12:51 AST 19 U/L (0-40) 06/18/24 12:51 ALT 17 U/L (0-41) 06/18/24 12:51 Alkaline Phosphatase 81 U/L (40-130) 06/18/24 12:51 NT-Pro-B Natriuret Pep < 36 pg/mL (0-125) 06/18/24 12:51 Total Protein 7.7 g/dL (6.6-8.7) 06/18/24 12:51 Albumin 4.1 g/dL (3.5-5.2) 06/18/24 12:51 Globulin 3.6 g/dL (1.3-4.6) 06/18/24 12:51 Influenza A (PCR) Negative (Negative) 06/18/24 13:20 Influenza Type B (PCR) Negative (Negative) 06/18/24 13:20 RSV (PCR) Negative (Negative) 06/18/24 13:20 SARS-CoV-2 (PCR) Negative (Negative) 06/18/24 13:20 All radiology interpretation(s) finalized by discharge Discharge Plan Discharge Patient Disposition: Home Clinical Impression: Shortness of breath Condition: Stable Prescriptions: No Action ibuprofen 800 mg tablet 800 mg PO TID tizanidine 4 mg tablet 4 mg PO TID hydrocodone-acetaminophen 10-325 mg tablet 1 tab PO QID PRN (Reason: Pain) omeprazole 20 mg capsule,delayed release(DR/EC) 20 mg PO DAILY bumetanide 1 mg tablet 1 mg PO DAILY albuterol sulfate 90 mcg/actuation HFA aerosol inhaler 2 inh INHALATION Q6H lisinopril 40 mg tablet 40 mg PO DAILY fluticasone propionate 50 mcg/actuation spray,suspension 2 spray INTRANASAL BID insulin lispro 100 unit/mL insulin pen 40 unit SUBCUT TID fenofibrate 160 mg tablet 160 mg PO DAILY insulin degludec [Tresiba FlexTouch U-100] 100 unit/mL (3 mL) insulin pen 80 unit SUBCUT BID potassium chloride 20 mEq tablet extended release 20 meq PO DAILY Trulicity 0.75 mg/0.5 mL pen injector 0.75 mg SUBCUT Q7D Trijardy XR 25-5-1,000 mg tablet, IR - ER, biphasic 24hr 1 tab PO DAILY Trelegy Ellipta 200-62.5-25 mcg blister with device 1 ea INHALATION DAILY Discharge Orders: Discharge ED (Routine); Ordered 06/18/24 Ordered By: Christianne Hinds Referrals: Rachel Cortez DO [Primary Care Provider] - 4-7 days Discharge Diet: Advance as tolerated Discharge Activity: Resume usual activity Patient Instructions: Shortness of Breath (ED) Print Language: Syrian Coding Level of Care Code ED Technician Anatomic Pathology for Sherrie Mejia
[2024-06-18 13:30] LABS: Alanine Aminotransferase 17 U/L (0-41); Albumin Level 4.1 g/dL (3.5-5.2); Alkaline Phosphatase 81 U/L (40-130); Anion Gap 16.8 (5-19); Aspartate Amino Transferase 19 U/L (0-40); Blood Urea Nitrogen 15 mg/dL (6-20); Calcium 9.9 mg/dL (8.5-10.5); Carbon Dioxide 25 mmol/L (22-29); Chloride 101 mmol/L (98-107); Creatinine Clr Calc Pharmacy 129.7635; Globulin 3.6 g/dL (1.3-4.6); Glomerular Filtration Rate 78.8 mL/min (90-130); Glucose 114 mg/dL (65-115); NT Pro B Type Natriuretic Pept < 36 pg/mL (0-125); Osmolality Calculated 290 mOsm/kg (285-295); Potassium 3.8 mmol/L (3.5-5.1); Sodium 139 mmol/L (136-145); Total Bilirubin 0.7 mg/dL (0.15-1.2); Total Protein 7.7 g/dL (6.6-8.7)
[2024-06-18 14:10] LABS: Influenza A NEGATIVE (Negative); Influenza B NEGATIVE (Negative); Respiratory Syncytial Virus Ce NEGATIVE (Negative); SARS-CoV-2 PCR NEGATIVE (Negative)
[2024-06-18 14:35] VITALS: BP 150/94; PULSE 90; RESP 16; O2SAT 97
== END 2024-06-18 14:25 | disposition home or self-care (01) ==
PROVIDERS: Emergency Provider Emergency Medicine; PCP Family Medicine
DX: R06.02 Shortness of breath (principal); Z11.52 Encounter for screening for COVID-19; Z79.4 Long term (current) use of insulin
CPT/HCPCS: 36415; 71045; 80053; 83880; 85025; 87637; 93005; 99285